=== PATIENT | female | born 1990 ===

== ENCOUNTER 2017-03-22 17:15 | Emergency (ER) | payer OTHER ==
[2017-03-22] MEDS ORDERED: Bacitracin 500 Units/gm Oint Foilpak UD TOP ONE (17:31)
[2017-03-22] MEDS ORDERED: Tmp-Smz 800 mg-160 mg DS Tab PO STA (17:31)
[2017-03-22] MEDS ORDERED: Tmp-Smz 800 mg-160 mg DS Tab ONE (17:35)
[2017-03-22] MEDS ORDERED: Bacitracin 500 Units/gm Oint Foilpak UD ONE (17:35)
[2017-03-22 17:52] VITALS: RESP 18; TEMP 97.9; O2SAT 98
--- NOTE | 2017-03-22 18:10 | C.PDOC ---
History Of Present Illness 26 year old female presents to the ER with a complaint of having drainage from her site. Patient states she had a on 02/25/17 that has been healing well but today noticed some pus at the corner of the incision. Denies fever, chills, or abdominal pain. Time Seen by Provider: 03/22/17 17:25 Chief Complaint (Nursing): Abnormal Skin Integrity History Per: Patient History/Exam Limitations: no limitations Onset/Duration Of Symptoms: Hrs Current Symptoms Are (Timing): Still Present Location Of Injury: Anterior: Abdomen Quality Of Symptoms: Draining Recent travel outside of the [place]: No Past Medical History Reviewed: Historical Data, Nursing Documentation, Vital Signs Vital Signs: Last Vital Signs Temp 97.9 F 03/22/17 17:23 Pulse 76 03/22/17 18:20 Resp 18 03/22/17 18:20 BP 115/72 03/22/17 18:20 Pulse Ox 98 03/22/17 18:20 - Medical History PMH: No Chronic Diseases Surgical History: No Surg Hx Family History: States: Unknown Family Hx - Social History Hx Alcohol Use: No Hx Substance Use: No - Immunization History Hx Tetanus Toxoid Vaccination: Yes Hx Influenza Vaccination: Yes Hx Pneumococcal Vaccination: No Review Of Systems Constitutional: Negative for: Fever, Chills Gastrointestinal: Negative for: Abdominal Pain Skin: Positive for: Other (Drainage from site) Physical Exam - Physical Exam Appears: Non-toxic, No Acute Distress Skin: Warm, Dry Head: Atraumatic, Normacephalic Eye(s): bilateral: Normal Inspection Oral Mucosa: Moist Chest: Symmetrical, No Tenderness Cardiovascular: Rhythm Regular Respiratory: Normal Breath Sounds, No Rales, No Rhonchi, No Wheezing Gastrointestinal/Abdominal: Soft, No Tenderness, Other (Well healing scar to lower abdomen. No drainage, erythema, or swelling.) Neurological/Psych: Oriented x3, Normal Speech ED Course And Treatment O2 Sat by Pulse Oximetry: 98 (Room air) Pulse Ox Interpretation: Normal Medical Decision Making Medical Decision Making: Patient started on antibiotics for possible infection. Disposition - Disposition Referrals: Bautista Barkley MD [Medical Doctor] - Disposition: HOME/ ROUTINE Disposition Time: 18:08 Condition: GOOD Additional Instructions: Follow up with the medical doctor within 1-2 days, Return if worsened. Prescriptions: Bacitracin Ointment [Bacitracin] 30 gm TOP BID #1 tube Sulfamethoxazole/Trimethoprim [Bactrim DS 800 mg-160 mg] 1 tab PO BID #14 tab Instructions: Cellulitis (ED) Forms: [employer] [place] ([place]i) Print Language: INDONESIAN - Clinical Impression Clinical Impression: Cellulitis - PA / OFFICE MOVER / Resident Statement MD/DO has reviewed & agrees with the documentation as recorded. - Scribe Statement The provider has reviewed the documentation as recorded by the Moisésibregan Pereyra All medical record entries made by the Franci were at my direction and personally dictated by me. I have reviewed the chart and agree that the record accurately reflects my personal performance of the history, physical exam, medical decision making, and the department course for this patient. I have also personally directed, reviewed, and agree with the discharge instructions and disposition.
[2017-03-22 18:28] VITALS: BP 115/72; PULSE 76
== END 2017-03-22 18:20 | disposition home or self-care (01) ==
LOC: C.ER 17:15
DX: L03.311 Cellulitis of abdominal wall (principal)